=== PATIENT | male | born 1960 | race Caucasian/White ===

== ENCOUNTER 2020-03-17 11:22 | Emergency (ER) | payer BC ==
[2020-03-17] MEDS ORDERED: HYDROmorphone 0.5 MG/0.5 ML Syringe IVPUSH ONE (11:46)
[2020-03-17] MEDS ORDERED: Lidocaine 1% 10 ML MDV INJECT ONE (11:46)
[2020-03-17] MEDS ORDERED: Diphtheria,Pertussis(Acell),Tetanus Vaccine 0.5 ML Syringe IM ONE (11:46)
--- NOTE | 2020-03-17 12:30 | EDM.PDOC ---
ED HPI GENERAL MEDICAL PROBLEM - General Chief Complaint: Laceration Stated Complaint: CUT POINTER FINGER LEFT HAND Time Seen by Provider: 03/17/20 11:40 Source of Information: Reports: Patient History Limitations: Reports: No Limitations - History of Present Illness INITIAL COMMENTS - FREE TEXT/NARRATIVE: Patient is a 59-year-old male who presents to the emergency department with a laceration to the tip of his left index finger. He states that the finger got "sucked into the bit of a rounder ". He is unsure of his last tetanus vaccination. - Related Data Allergies Allergy/AdvReac Type Severity Reaction Status Date / Time No Known Allergies Allergy Verified 03/17/20 11:31 Past Medical History HEENT History: Reports: Impaired Vision Gastrointestinal History: Reports: Gastritis Endocrine/Metabolic History: Reports: Obesity/BMI 30+ - Infectious Disease History Infectious Disease History: Reports: Chicken Pox Social & Family History - Family History Family Medical History: Noncontributory - Tobacco Use Smoking Status *Q: Never Smoker ED ROS GENERAL - Review of Systems Review Of Systems: Comprehensive ROS is negative, except as noted in HPI. ED EXAM, SKIN/RASH Exam: See Below Exam Limited By: No Limitations General Appearance: Alert, WD/WN, No Apparent Distress Respiratory/Chest: No Respiratory Distress, Lungs Clear, Normal Breath Sounds, No Accessory Muscle Use, Chest Non-Tender Cardiovascular: Normal Peripheral Pulses, Regular Rate, Rhythm, No Edema, No Gallop, No JVD, No Murmur, No Rub Neurological: Alert, Oriented, CN II-XII Intact, Normal Cognition, Normal Gait, Normal Reflexes, No Motor/Sensory Deficits Psychiatric: Normal Affect, Normal Mood Skin: Other (1.5 cm crescent-shaped laceration to the distal lateral aspect of the left index finger. Small area of the distal fingernail avulsed. No exposed bone.) ED SKIN PROCEDURES - Laceration/Wound Repair Left Lateral Digit - 2nd (Index) Appearance: Subcutaneous, Clean Distal NVT: Neuro & Vascular Intact Anesthetic Type: Local Local Anesthesia - Lidocaine (Xylocaine): 1% Plain Local Anesthetic Volume: 2cc Skin Prep: Chlorhexidine (Hibiciens), Providone-Iodine (Betadine), Isopropyl Alcohol (Alcohol) Exploration/Debridement/Repair: Wound Explored, In a Bloodless Field, No Foreign Material Found Closed with: Sutures Lac/Wound length In cm: 1.5 Suture Size: 4-0 # of Sutures: 5 Suture Type: Nylon Sterile Dressing Applied: Nurse Tetanus Status Addressed: Yes Complications: No Course - Vital Signs Last Recorded V/S: Last Vital Signs Temp 97.6 F 03/17/20 11:33 Pulse 66 03/17/20 11:33 Resp 16 03/17/20 11:33 BP 132/85 03/17/20 11:33 Pulse Ox 95 03/17/20 11:33 - Orders/Labs/Meds Meds: Medications Discontinued Medications Generic Name Dose Route Start Last Admin Trade Name Yessenia PRN Reason Stop Dose Admin Diphtheria/Tetanus/Acell Pertussis 0.5 ml 03/17/20 11:46 03/17/20 11:58 Adacel IM 03/17/20 11:47 0.5 ml .ONCE ONE Administration Hydromorphone HCl 0.5 mg 03/17/20 11:46 03/17/20 11:59 Dilaudid IVPUSH 03/17/20 11:47 Not Given ONETIME ONE Lidocaine HCl 10 ml 03/17/20 11:46 03/17/20 11:58 Xylocaine 1% INJECT 03/17/20 11:47 10 ml ONETIME ONE Administration - Re-Assessments/Exams Free Text/Narrative Re-Assessment/Exam: X-ray completed of the left index finger shows no fracture to the tuft of the finger. There is no exposed bone. Laceration was closed using sutures. See procedure notes for closure. Discharge instructions as documented. Departure - Departure Time of Disposition: 12:29 Disposition: Home, Self-Care 01 Condition: Good Clinical Impression: Laceration - Discharge Information *PRESCRIPTION DRUG MONITORING PROGRAM REVIEWED*: No *COPY OF PRESCRIPTION DRUG MONITORING REPORT IN PATIENT KUSHAL: No Instructions: Sutures, [place], or Adhesive Wound Closure, [id number] Referrals: PCP,Not In Area [Primary Care Provider] - Forms: ED Department Discharge Additional Instructions: You were seen in the emergency department today for a laceration to your left index finger. The wound was cleansed and closed with 5 sutures. These should stay intact for 7 days. After that time they may be removed in the clinic by a nurse. Keep the wound clean and dry. Wash with normal soap and water twice daily. Do not submerge the wound in water. Watch for signs of infection including increased redness, swelling, or purulent drainage. If these should occur, you should be seen either in the clinic or in the emergency department as antibiotic treatment may be needed. Return to the ER as needed. Sepsis Event Note (ED) - Evaluation Sepsis Screening Result: No Definite Risk
--- NOTE | 2020-03-19 09:38 | CR ---
Left 2nd finger: 3 views centered to the left 2nd finger were obtained. Soft tissue injury is noted distally. No soft tissue foreign body is appreciated. No acute fracture or other abnormality is appreciated. Impression: 1. Distal soft tissue injury. 2. No additional abnormality is appreciated. Diagnostic code #2 This report was dictated in MDT
== END 2020-03-17 12:40 | disposition home or self-care (01) ==
LOC: JD.ED 11:22
DX: S61.211A Laceration without foreign body of left index finger without damage to nail, initial encounter (principal); Z23 Encounter for immunization; E66.9 Obesity, unspecified; Z68.42 Body mass index [BMI] 45.0-49.9, adult; W22.8XXA Striking against or struck by other objects, initial encounter
CPT/HCPCS: 12001; 73140; 90471; 90715; 99283; J2001

== ENCOUNTER 2020-03-25 14:27 | Emergency (ER) | payer BC | END 2020-03-25 15:15 | LOC: JD.ED 14:27 | DX: S61.211D Laceration without foreign body of left index finger without damage to nail, subsequent encounter (principal) | CPT/HCPCS: 99281 ==